=== PATIENT | male | born 1940 | race Two or more races ===

== ENCOUNTER 2018-02-21 08:47 | Inpatient (IN) | payer OTHER ==
[~2018-02-21] VITALS: Ht 167.6 cm; Wt 70.3 kg
--- NOTE | 2018-02-21 08:50 | NUR ---
BIB RA, SITTING AT A SIDEWALK,NON-VERBAL UPON EMS ARRIVAL,BLOOD SUGAR 91. ARRIVED WITH IV INTACT ON RAC, 18G. CURRENTLY A/OX 1, NON-VERBAL, BREATHING EVEN AND UNLABORED. NO SOB, NAD, VITALS STABLE. SAFETY AND COMFORT MEASURES IN PLACE. AWAITING MD ORDERS.
--- NOTE | 2018-02-21 08:57 | NUR ---
STARTED IVF ON RAC, 18G, PER MD ORDERS.
[2018-02-21] MEDS ORDERED: IV NS 0.9% 1,000 ML BAG IV ONE (09:00)
[2018-02-21 09:11] LABS: BASOPHILS # (AUTO) 0.1 /CMM (0.0-0.2); BASOPHILS % (AUTO) 0.9 % (0.0-2.0); EOSINOPHILS % (AUTO) 0.3 % (0.0-6.0); HEMATOCRIT 37 % (39-51); HEMOGLOBIN 12.9 g/dL (13.5-17.5); LYMPHOCYTES % (AUTO) 14.7 % (20.0-44.0); MEAN CORPUSCULAR HGB CONC 35 g/dl (31.0-36.0); MEAN CORPUSCULAR VOLUME 91 fL (80-96); MONOCYTES # (AUTO) 0.5 /CMM (0.1-1.30); MONOCYTES % (AUTO) 6.7 % (2.0-12.0); NEUTROPHILS # (AUTO) 5.4 /CMM (1.8-8.9); NEUTROPHILS % (AUTO) 77.4 % (43.0-81.0); PLATELET COUNT (AUTO) 214 /CMM (150-450); RDW COEFFICIENT OF VARIATION 14.1 (11.5-15.0); RED BLOOD CELL COUNT(AUTO) 4.09 MIL/uL (4.5-6.0)
--- NOTE | 2018-02-21 09:11 | NUR ---
PATIENT TAKEN TO CT VIA STRETCHER.
--- NOTE | 2018-02-21 09:20 | NUR ---
PATIENT RETURNED FROM CT IN STABLE CONDITION.
[2018-02-21 09:21] LABS: CALCIUM, SERUM 8.6 mg/dL (8.5-10.1); CARBON DIOXIDE 29 mmol/L (21-32); CHLORIDE 102 mmol/L (98-107); CREATININE 0.9 mg/dL (0.6-1.3); GLUCOSE 110 mg/dL (74-106); POTASSIUM 4.4 mmol/L (3.5-5.1); SODIUM SERUM 139 mmol/L (136-145); UREA NITROGEN, BLOOD 12 mg/dL (7-18)
--- NOTE | 2018-02-21 09:25 | NUR ---
SALES REVIEW CLERK AT BEDSIDE.
[2018-02-21 09:27] LABS: ALANINE AMINOTRANSFERASE 28 U/L (12-78); ALBUMIN 3.4 g/dL (3.4-5.0); ALKALINE PHOSPHATASE 136 U/L (46-116); ASPARTATE AMINOTRANSFERASE 26 U/L (15-37); BILIRUBIN,DIRECT 0.3 mg/dL (0.0-0.2); BILIRUBIN,TOTAL 0.9 mg/dL (0.2-1.0); TOTAL PROTEIN, SERUM 6.7 g/dL (6.4-8.2)
[2018-02-21 09:29] LABS: TROPONIN I 0.019 ng/mL (0.00-0.056)
--- NOTE | 2018-02-21 09:53 | NUR ---
URINE OBTAINED AND SENT TO LAB.
[2018-02-21 09:56] LABS: APPEARANCE,URINE Clear (CLEAR); BILIRUBIN,URINE Negative (NEGATIVE); BLOOD, URINE Negative Ery/uL (NEGATIVE); COLOR,URINE Yellow (YELLOW); KETONES,URINE Negative (NEGATIVE); LEUKOCYTE ESTERASE ,URINE Negative (NEGATIVE); NITRITE, URINE Negative (NEGATIVE); PH,URINE 6.5 (5.0-8.0); PROTEIN,URINE Negative (NEGATIVE); UGLUCOSE Negative (NEGATIVE)
[2018-02-21] MEDS ORDERED: AZITHROMYCIN 500 MG in IV D5W 250 ML IV ONE (10:00)
[2018-02-21] MEDS ORDERED: CEFTRIAXONE 1GM BAG (ER ONLY) 50 ML IV ONE ×2 (10:00→10:01)
--- NOTE | 2018-02-21 10:01 | NUR ---
ESTELA received a call from ED informing ESTELA that pt. was found on the street and was brought in by paramedics. Pt. is very confused and had dementia. ESTELA met with pt. bedside. Pt. is alert and oriented x 2. Pt. was able to state his name Ochoa Calvillo and give his date of [birth year]. ESTELA was able to locate pt's contact information in [employer] since pt. was in our GPS unit in September 2017. ESTELA was able to locate pt's daughter/DPOA Shira Bolden's contact number [phone]. ESTELA contacted Shira and informed her that her father is at [facility]. Shira informed ESTELA that she is relieved that he was found. Shira had placed a call to [facility] ESTRADA and filed a missing persons. Pt. resides at [facility] and walked out of the facility. ESTELA contacted Missing persons and spoke to Detective Jones and informed her about pt's whereabouts. Detective Jones informed ESTELA she will contact [facility] ESTRADA and inform them that pt. is no longer considered missing and family has been contacted.
[2018-02-21 10:03] LABS: BACTERIA,URINE None seen /HPF (None Seen); SQUAMOUS EPITHELIAL CELL,UR Few /HPF (None Seen); WBC,URINE 0-3 /HPF (0-3)
[2018-02-21] MEDS ORDERED: ONDANSETRON HCL/PF 4 MG/2 ML VIAL IVP PRN (10:30)
[2018-02-21] MEDS ORDERED: MAG HYDROX/AL HYDROX/SIMETH 30 ML UDC PO PRN (10:30)
[2018-02-21] MEDS ORDERED: ACETAMINOPHEN 325 MG TABLET PO PRN (10:30)
[2018-02-21] MEDS ORDERED: MAGNESIUM HYDROXIDE 30 ML UDC PO PRN (10:30)
[2018-02-21] MEDS ORDERED: Z GUARD REMEDY 2 OZ OINT TP PRN (10:30)
--- NOTE | 2018-02-21 10:46 | NUR ---
REPORT GIVEN TO COLLETTE WOOD FOR ELIU UPON ADMISSION.
[2018-02-21 11:10] VITALS: BP 110/60
--- NOTE | 2018-02-21 11:10 | NUR ---
PATIENT TRANSPORTED TO [facility] VIA ACLS PROTOCOL. RNCOLLETTE TO PROVIDE ELIU.
--- NOTE | 2018-02-21 11:10 | NUR ---
SEAMER NOTES. RECEIVED PATIENT AWAKE ALERT AND VERBALLY RESPONSIVE, RESPIRATIONS EVEN AND UNLABORED, NO COMPLAINTS OF PAIN , V.S WNL, NO DISTRESS , ON AMMUNITION OFFICER SR 66, BODY ASSESSMENT DONE, PICTURES TAKEN, SAFETY MEASURES IN PLACE, ORIENTED TO ROOM ,CALL LIGHT KEPT WITHIN REACH .WILL CONTINUE TO MONITOR AND CARRY OUT ADMISSION ORDERS.
[2018-02-21 12:00] VITALS: BP 110/60
[2018-02-21] MEDS: ENOXAPARIN SODIUM 40 MG/0.4 ML DISP.SYRIN SQ SCH (13:09)
[2018-02-21 16:00] VITALS: BP 127/66
--- NOTE | 2018-02-21 19:30 | NUR ---
RN CLOSING NOTES. PATIENT AWAKE ALERT AND VERBALLY RESPONSIVE, RESPIRATIONS EVEN AND UNLABORED, NO COMPLAINTS OF PAIN , V.S WNL, NO DISTRESS , ON SUEDING MACHINE OPERATOR SR 68,IV ACCESS TO RIGHT AC 18 G, PATENT AND INTACT, NO REDNESS, NO INFILTRATION, FALL RISK, SAFETY MEASURES IN PLACE, ORIENTED TO ROOM ,CALL LIGHT KEPT WITHIN REACH .
[2018-02-21 20:00] VITALS: BP 117/55
--- NOTE | 2018-02-21 20:43 | NUR ---
MR. LUONG WAS AMBULATED TO THE BATHROOM, STEADY ON HIS LEGS, BUT FOR SAFETY NEEDING STAND-BY ASSIST. BED ALARM ON AND NEAR NURSING STATION FOR HIS SAFETY. HE IS CALM AND PLEASANT. COOPERATIVE AT THIS TIME
--- NOTE | 2018-02-21 20:59 | NUR ---
RECIEVED PATIENT AWAKE ALERT ONLY TO HER NAME. EYE CONTACT PRESENT.NOTED [place] AREA IS RED CLEANED AND ANTI FUNGAL CREAM APPLIED. Addendum: 02/22/18 at 0028 by MASOUD ZAVALA RN charted on the wrong patient
[2018-02-21] MEDS: HYDROCODONE/APAP 5/325MG 1 EACH TABLET PO PRN (22:09)
[2018-02-22 04:18] VITALS: BP_SYST 156
--- NOTE | 2018-02-22 04:42 | NUR ---
was awake thru the night. roaming the hallways and entering the other patients room. Staff following him when he leaves his room for his safety. remains confused and orientating him unsucessful. He calm and coopertive, hygiene roche he is good about brushing his teeth and washing his face combing his hair.
[2018-02-22 07:08] LABS: BASOPHILS % (AUTO) 0.5 % (0.0-2.0); HEMATOCRIT 36 % (39-51); HEMOGLOBIN 12.3 g/dL (13.5-17.5); LYMPHOCYTES # (AUTO) 1.2 /CMM (0.8-4.8); LYMPHOCYTES % (AUTO) 27.2 % (20.0-44.0); MEAN CORPUSCULAR HGB CONC 34 g/dl (31.0-36.0); MEAN CORPUSCULAR VOLUME 93 fL (80-96); MONOCYTES # (AUTO) 0.5 /CMM (0.1-1.30); MONOCYTES % (AUTO) 10.7 % (2.0-12.0); NEUTROPHILS # (AUTO) 2.7 /CMM (1.8-8.9); NEUTROPHILS % (AUTO) 60.6 % (43.0-81.0); PLATELET COUNT (AUTO) 189 /CMM (150-450); RDW COEFFICIENT OF VARIATION 15.3 (11.5-15.0); RED BLOOD CELL COUNT(AUTO) 3.85 MIL/uL (4.5-6.0); WHITE BLOOD COUNT (AUTO) 4.5 K/uL (4.3-11.0)
[2018-02-22 07:30] LABS: CHOLESTEROL 106 mg/dL (<200); HDL CHOLESTEROL 80 mg/dL (40-60); LDL 34 mg/dL (0-99); THYROID STIMULATING HORMONE 2.274 uIU/mL (0.358-3.74); TRIGLYCERIDES 46 mg/dL (30-150)
--- NOTE | 2018-02-22 07:30 | NUR ---
COMPO CONVEYOR OPERATOR NOTES PT AWAKE, SITTING IN BED, ALERT TO SELF, VERBALLY RESPONSIVE, WITH CONFUSION, NO FACIAL GRIMACING, RESPIRATIONS NORMAL AND NOT LABORED, WITH EPISODES OF WALKING INSIDE HIS ROOM AND ALONG THE HALLWAY, REDIRECTION AND REORIENTATION PROVIDED NEEDED, SAFETY PRECAUTIONS OBSERVED.
[2018-02-22 07:37] LABS: CALCIUM, SERUM 8.3 mg/dL (8.5-10.1); CARBON DIOXIDE 34 mmol/L (21-32); CHLORIDE 107 mmol/L (98-107); CREATININE 0.9 mg/dL (0.6-1.3); GLUCOSE 104 mg/dL (74-106); MAGNESIUM 2.1 mg/dL (1.8-2.4); PHOSPHORUS 3.5 mg/dL (2.5-4.9); POTASSIUM 4.1 mmol/L (3.5-5.1); SODIUM SERUM 143 mmol/L (136-145); UREA NITROGEN, BLOOD 12 mg/dL (7-18)
[2018-02-22 08:00] VITALS: BP 149/69
[2018-02-22] MEDS: HYDROCODONE/APAP 5/325MG 1 EACH TABLET PO PRN ×2 (09:11→21:19)
[2018-02-22] MEDS: CEFTRIAXONE 1 G in IV NS 0.9% 50 ML IV SCH (09:11)
[2018-02-22] MEDS: ENOXAPARIN SODIUM 40 MG/0.4 ML DISP.SYRIN SQ SCH (09:12)
--- NOTE | 2018-02-22 10:48 | NUR ---
PT SEEN BY FRANTZ STOVALL, PT CONSTANTLY WALKING AROUND THE ROOM AND HALLWAYS, RISK FOR ELOPEMENT, GAVE ORDER FOR SITTER.
[2018-02-22 12:00] VITALS: BP_SYST 124; BP_SYST 129; BP_SYST 99; BP_DIAS 54; BP_DIAS 65; BP_DIAS 76
[2018-02-22] MEDS: AZITHROMYCIN 500 MG in IV D5W 250 ML IV SCH (13:10)
[2018-02-22] MEDS ORDERED: LORAZEPAM 1 MG TABLET PO PRN (14:30)
[2018-02-22 16:00] VITALS: BP 134/68
[2018-02-22] MEDS: LACTOBACILLUS RHAMNOSUS GG 1 EACH CAP.SPRINK PO SCH (16:11)
[2018-02-22] MEDS: QUETIAPINE FUMARATE 25 MG TABLET PO SCH ×2 (16:11→21:00)
--- NOTE | 2018-02-22 18:30 | NUR ---
RN MS NOTES PT IN BED, AWAKE, ALERT TO SELF, WITH PERIODS OF INABILITY TO STAY STILL, WANDERS ALONG THE HALLWAY ACCOMPANIED BY EMBALMER/FUNERAL DIRECTOR, SAFETY PRECAUTIONS OBSERVED, PT SEEN BY DR. REGALADO, ORDERS GIVEN, NOTED AND CARRIED OUT, ASSISTED WITH NEEDS.
--- NOTE | 2018-02-22 19:30 | NUR ---
RN NOTES RECEIVED PATIENT IN BED SLEEPING, EASILY AROUSABLE. OA X 1, ABLE TO MAKE NEEDS KNOWN. NO ACUTE DISTRESS NOTED. NO SIGNS OF PAIN NOTED. IV SITE PATENT, INTACT; FLUSHED. SAFETY REMINDERS GIVEN. ON LOW BED WITH BILATERAL UPPER SIDE RAILS UP. CALL MERRITT WITHIN EASY REACH. WILL CONTINUE TO MONITOR. SITTER AT BEDSIDE.
[2018-02-22 20:00] VITALS: BP 134/83
--- NOTE | 2018-02-22 21:34 | NUR ---
RN NOTES SEROQUEL GIVEN AT 1600. PER PHARMACY, SKIP TONIGHT'S DOSE.
--- NOTE | 2018-02-23 06:57 | NUR ---
RN NOTES PATIENT ASLEEP, EASILY AROUSABLE. RESPIRATIONS EVEN. NO SIGNS OF PAIN NOTED. NEEDS ATTENDED. SAFETY PRECAUTIONS AND COMFORT MEASURES IN PLACE. SITTER AT BEDSIDE. WILL GIVE REPORT TO DAY SHIFT FOR CONTINUITY OF CARE.
--- NOTE | 2018-02-23 07:29 | NUR ---
MS RN NOTES PATIENT RECEIVED RESTING INSIDE ROOM. SLEEPING, EASILY AROUSABLE THROUGH VERBAL AND TACTILE STIMULI. BREATHING EVEN AND UNLABORED. NO SOB OR ACUTE DISTRESS NOTED AT THIS TIME. NO C/O PAIN OR DISCOMFORT. SITTER AT BEDSIDE. PATIENT ALERT AND ORIENTED X1. RE-ORIENTED TO PLACE, TIME, SITUATION. SAFETY REMINDERS GIVEN. WILL CONTINUE TO MONITOR. BILATERAL UPPER SIDE RAILS UP AND LOCKED. BED LOCKED AND IN LOW POSITION. CALL LIGHT WITHIN EASY REACH
[2018-02-23 08:00] VITALS: BP 111/60
[2018-02-23] MEDS: LACTOBACILLUS RHAMNOSUS GG 1 EACH CAP.SPRINK PO SCH ×2 (08:15→16:50)
[2018-02-23] MEDS: QUETIAPINE FUMARATE 25 MG TABLET PO SCH ×2 (08:15→20:43)
[2018-02-23] MEDS: ENOXAPARIN SODIUM 40 MG/0.4 ML DISP.SYRIN SQ SCH (08:16)
[2018-02-23] MEDS ORDERED: LISINOPRIL (20MG) 20 MG TABLET PO SCH (09:00)
[2018-02-23] MEDS ORDERED: MAGNESIUM OXIDE 400 MG TABLET PO SCH (09:00)
[2018-02-23] MEDS: CEFTRIAXONE 1 G in IV NS 0.9% 50 ML IV SCH (09:31)
[2018-02-23] MEDS: AZITHROMYCIN 500 MG in IV D5W 250 ML IV SCH (11:10)
[2018-02-23 16:00] VITALS: BP 114/64
--- NOTE | 2018-02-23 18:33 | NUR ---
MS RN NOTES PATIENT RESTING INSIDE ROOM, AWAKE, ALERT AND ORIENTED WITH PERIODS OF FORGETFULNESS AND CONFUSION, ABLE TO MAKE NEEDS KNOWN AND FOLLOW SIMPLE INSTRUCTIONS. PATIENT BREATHING EVEN AND UNLABORED. NO SOB OR ACUTE DISTRESS NOTED AT THIS TIME. PATIENT DENIES ANY PAIN OR DISCOMFORT. AFEBRILE, SKIN DRY AND WARM TO TOUCH. SITTER AT BEDSIDE. SAFETY REMINDERS GIVEN TO PATIENT. IV SITE ON RIGHT AC INTACT AND PATENT, NO BLEEDING OR SWELLING NOTED. WILL ENDORSE TO INCOMING SHIFT FOR ELIU. BED LOCKED AND IN LOW POSITION, BILATERAL UPPER SIDE RAILS UP AND LOCKED. CALL LIGHT WITHIN EASY REACH
--- NOTE | 2018-02-23 19:45 | NUR ---
MS RN NOTE: PATIENT RESTING IN BED, NO ACUTE DISTRESS NOTED. BREATHING EVEN AND UNLABORED, NO SOB NOTED. IV TO RAC IN PLACE. RECEIVED CALL FROM MADELINE RIVERA THAT PATIENT IS BEING TRANSFERRED TO [facility] TO ROOM 1205, PER INSURANCE REQUEST. INSURANCE TO SET UP AMBULANCE CHEMICAL TREATMENT PLANT TECHNICIAN. DISCHARGE PAPERWORK BEING PREPARED. SITTER AT BEDSIDE. BED LOCKED AND IN LOWEST POSITION, CALL LIGHT IN REACH. WILL CONTINUE TO MONITOR.
--- NOTE | 2018-02-23 21:00 | NUR ---
MS RN N0TE: PATIENT BEING PICKED UP BY EMT, REPORT GIVEN TO EMT. DISCHARGE PAPERWORK PREPARED AND COSIGNED WITH SECOND RN DUE TO PATIENT CONFUSION. REPORT GIVEN TO ZIYAD AT [facility]. IV TO RAC TO SAY IN PLACE. SEROQUEL 12.5MG ORAL GIVEN PER MD ORDER. DISCHARGE PAPERWORK AND RADIOLOGY CD ALSO GIVEN TO EMT. PER MIGUEL, CM DAUGHTER WAS INFORMED AND MD WERE SET UP DURING DAYSHIFT. PATIENT OFF FLOOR IN STABLE CONDITION WITH EMT.
== END 2018-02-23 20:55 | disposition short-term general hospital (02) | DRG 193 ==
LOC: ER 08:49 → EDBD 08:49 → TELE 11:15 → MED 02-22 11:03
PROVIDERS: ADMIT Nurse Practitioner Acute Care; ATTEND Nurse Practitioner Acute Care
DX: J15.9 Unspecified bacterial pneumonia (principal); G93.41 Metabolic encephalopathy; F03.91 Unspecified dementia, unspecified severity, with behavioral disturbance; D63.8 Anemia in other chronic diseases classified elsewhere; F29 Unspecified psychosis not due to a substance or known physiological condition
CPT/HCPCS: 36415; 70450-TC; 71045-TC; 80048-TC; 80061-TC; 80076-TC; 81000-TC; 83605-TC; 83735-TC; 84100-TC; 84443-TC; 84484-TC; 85025-TC; 85730-TC; 87040-TC; 87081-TC; 87086-TC; 97110-TC; 97116-TC; 97530-TC; A4216; A4606; J0456; J0696; J1650; J7030; J7050; J7060; Z7610